=== PATIENT | male | born 1990 | race Caucasian/White ===

== ENCOUNTER 2020-10-12 09:48 | Emergency (ER) | payer BC, OTHER ==
[~2020-10-12] VITALS: Ht 172.7 cm; Wt 102.1 kg
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
--- NOTE | 2020-10-12 09:58 | NUR ---
AT BEDSIDE FOR EVAL.
--- NOTE | 2020-10-12 10:05 | NUR ---
SEEN AND EXMAINED BY .
[2020-10-12] MEDS ORDERED: OLANZAPINE 10 MG VIAL IM ONE ×2 (10:09→10:30)
[2020-10-12 10:50] LABS: BASOPHILS # (AUTO) 0.1 /CMM (0.0-0.2); BASOPHILS % (AUTO) 0.7 % (0.0-2.0); EOSINOPHILS % (AUTO) 2.7 % (0.0-6.0); HEMATOCRIT 44 % (39-51); HEMOGLOBIN 15.2 g/dL (13.5-17.5); LYMPHOCYTES # (AUTO) 1.6 /CMM (0.8-4.8); LYMPHOCYTES % (AUTO) 19.2 % (20.0-44.0); MEAN CORPUSCULAR HGB CONC 34 g/dl (31.0-36.0); MEAN CORPUSCULAR VOLUME 85 fL (80-96); MONOCYTES # (AUTO) 0.5 /CMM (0.1-1.30); MONOCYTES % (AUTO) 6.5 % (2.0-12.0); NEUTROPHILS % (AUTO) 70.9 % (43.0-81.0); PLATELET COUNT (AUTO) 300 /CMM (150-450); RED BLOOD CELL COUNT(AUTO) 5.22 MIL/uL (4.5-6.0); WHITE BLOOD COUNT (AUTO) 8.5 K/uL (4.3-11.0)
[2020-10-12 11:04] LABS: ALANINE AMINOTRANSFERASE 42 U/L (12-78); ALBUMIN 4.1 g/dL (3.4-5.0); ALCOHOL, BLOOD < 3 mg/dL (0-0); ALKALINE PHOSPHATASE 74 U/L (46-116); ASPARTATE AMINOTRANSFERASE 20 U/L (15-37); BILIRUBIN,DIRECT 0.1 mg/dL (0.0-0.2); BILIRUBIN,TOTAL 0.4 mg/dL (0.2-1.0); CALCIUM, SERUM 9.4 mg/dL (8.5-10.1); CARBON DIOXIDE 26 mmol/L (21-32); CHLORIDE 103 mmol/L (98-107); CREATININE 0.8 mg/dL (0.6-1.3); GLUCOSE 98 mg/dL (74-106); POTASSIUM 4.5 mmol/L (3.5-5.1); SODIUM SERUM 139 mmol/L (136-145); UREA NITROGEN, BLOOD 13 mg/dL (7-18)
[2020-10-12 11:10] LABS: ACETAMINOPHEN 0 ug/ml (10-30)
--- NOTE | 2020-10-12 12:21 | NUR ---
[employer] CALLED FOR CONSULT
--- NOTE | 2020-10-12 12:25 | NUR ---
SS consult requested for possible SI. The pt. is a 30-year old male who was [employer]. Per DELVIS, the pt. is currently is custody and was being escorted to his court hearing when he pt. began complaining of dizziness. However, upon arriving to [facility] ER the pt. began claiming SI. JASON met with pt. bedside. The pt. appears unkempt with blood shot eyes and is mal odorous. Pt. makes poor eye contact. The pt. is rousable to verbal cues. The pt. is alert & oriented x 3. The pt. stated that he last used Amphetamine 10/11/2020. Pt. stated he has been diagnosed with Schizoaffective disorder in the past. Per pt. he has been prescribed with Trazedone, and other medications in the past. Pt. stated he no longer sees a psychiatrist and receives medication by doing walk-ins into clinics. Per pt. he is currently experiencing SI with no plan. Pt. stated he has experienced visual, auditory & tactile hallucination in the past. Pt. denies any current hallucinations. Pt. was given Zyprexa for symptom management. Pt. stated that he is feeling better. Pt. has superficial cut in left wrist and stated he cut himself with the tip of an furnace operator oil or gas. Pt. stated, "It makes me feel better when I cut". Per DELVIS, the pt. needs clearance to go to court hearing. JASON discussed with Dr. Vargas. Possible Crisis eval pending.
--- NOTE | 2020-10-12 13:06 | NUR ---
ART SPEAKING WITH DR. FERNANDES
[2020-10-12] MEDS ORDERED: OLAN5TAB3 PO (14:13)
--- NOTE | 2020-10-12 14:21 | NUR ---
Patient discharged to in [employer] custody stable condition. Written and verbal after care instructions given. Patient verbalizes understanding of instruction.
[2020-10-12 14:22] VITALS: BP 122/71
== END 2020-10-12 14:23 ==
LOC: ER 09:48
DX: R45.851 Suicidal ideations (principal); F15.151 Other stimulant abuse with stimulant-induced psychotic disorder with hallucinations; Z20.822 Contact with and (suspected) exposure to COVID-19
CPT/HCPCS: 36415; 80048; 80076; 80299; 80307; 80320; 85025; 87426; 96372; 99285; C9803; J3490; G0480

== ENCOUNTER 2020-10-18 12:51 | Emergency (ER) | payer OTHER ==
[~2020-10-18] VITALS: Ht 177.8 cm; Wt 99.8 kg
[~2020-10-18 12:51] MED LIST: OLAN5TAB3 PO
[2020-10-18] MEDS ORDERED: LORAZEPAM INJ 2 MG/ML VIAL IVP ONE (13:00)
[2020-10-18] MEDS ORDERED: LORAZEPAM INJ 2 MG/ML VIAL ONE (13:17)
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
[2020-10-18 13:55] LABS: BASOPHILS # (AUTO) 0.1 /CMM (0.0-0.2); BASOPHILS % (AUTO) 0.5 % (0.0-2.0); EOSINOPHILS % (AUTO) 0.3 % (0.0-6.0); HEMATOCRIT 43 % (39-51); HEMOGLOBIN 14.7 g/dL (13.5-17.5); LYMPHOCYTES # (AUTO) 1.5 /CMM (0.8-4.8); LYMPHOCYTES % (AUTO) 13.2 % (20.0-44.0); MEAN CORPUSCULAR HGB CONC 34 g/dl (31.0-36.0); MEAN CORPUSCULAR VOLUME 85 fL (80-96); MONOCYTES # (AUTO) 0.8 /CMM (0.1-1.30); MONOCYTES % (AUTO) 7.4 % (2.0-12.0); NEUTROPHILS # (AUTO) 8.9 /CMM (1.8-8.9); NEUTROPHILS % (AUTO) 78.6 % (43.0-81.0); PLATELET COUNT (AUTO) 339 /CMM (150-450); RED BLOOD CELL COUNT(AUTO) 5.12 MIL/uL (4.5-6.0); WHITE BLOOD COUNT (AUTO) 11.3 K/uL (4.3-11.0)
[2020-10-18 14:01] LABS: CALCIUM, SERUM 9.4 mg/dL (8.5-10.1); CREATININE 0.9 mg/dL (0.6-1.3); POTASSIUM 3.9 mmol/L (3.5-5.1)
[2020-10-18 14:17] VITALS: BP 118/71
--- NOTE | 2020-10-18 14:18 | NUR ---
patient discharge in stable condition accompanied by chandler in no distres.
== END 2020-10-18 14:18 ==
LOC: ER 12:54
DX: R56.9 Unspecified convulsions (principal); F19.10 Other psychoactive substance abuse, uncomplicated
CPT/HCPCS: 36415; 70450; 80048; 85025; 96374; 99284; J2060